=== PATIENT | female | born 2000 | race African-American/Black ===

== ENCOUNTER 2020-01-11 01:35 | Emergency (ER) | payer OTHER ==
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
== END 2020-01-11 02:36 | disposition home or self-care (01) ==
LOC: VM.ED 01:35
DX: R45.851 Suicidal ideations (principal); F17.200 Nicotine dependence, unspecified, uncomplicated
CPT/HCPCS: 99284